=== PATIENT | female | born 1990 | race Caucasian/White ===

== ENCOUNTER 2020-10-31 14:58 | Emergency (ER) | payer MEDICAID ==
[~2020-10-31] VITALS: Ht 170.1 cm; Wt 83.9 kg
[~2020-10-31 14:58] MED LIST: ANAPROX DS550 MG PO
[2020-10-31 15:28] LABS: BILIRUBIN Negative (Negative); BLOOD Negative (Negative); CLARITY Clear (Clear); COLOR Yellow (Yellow); GLUCOSE Negative (Negative); KETONE Negative (Negative); LEUKO ESTERASE Negative (Negative); NITRITE Negative (Negative); SPECIFIC GRAVITY <= 1.005 (1.001-1.030); UROBILINOGEN 0.2 E.U./dl (0.0-1.0)
[2020-10-31 15:36] LABS: URINE AMPHETAMINES < 1000 (1000ng/ml); URINE BARBITURATES < 200 (200ng/ml); URINE BENZODIAZEPINES < 200 (200ng/ml); URINE CANNABINOIDS (THC) > 50 (50ng/ml); URINE COCAINE < 300 (300ng/ml); URINE METHADONE < 300 (300ng/ml); URINE OPIATES < 300 (300ng/ml)
[2020-10-31 15:46] LABS: URINE PHENCYCLIDINE < 25 (25ng/ml)
[2020-10-31 15:48] LABS: WBC 0-2 wbc/hpf (0-5)
== END 2020-10-31 19:57 | disposition home or self-care (01) ==
LOC: ED
PROVIDERS: Student in an Organized Health Care Education/Training Program
DX: F39 Unspecified mood [affective] disorder (principal); Z79.899 Other long term (current) drug therapy